=== PATIENT | male | born 1990 | race American Indian/Alaskan Native ===

== ENCOUNTER 2016-04-22 19:08 | Emergency (ER) | payer SELFPAY ==
[~2016-04-22] VITALS: Ht 157.5 cm; Wt 95.0 kg
[2016-04-22 19:39] VITALS: Ht 157.5 cm; Wt 95.0 kg
== END 2016-04-22 21:50 | disposition left against medical advice (07) ==
LOC: EDBD 19:08 → E/R 19:08
DX: Z53.21 Procedure and treatment not carried out due to patient leaving prior to being seen by health care provider (principal)